=== PATIENT | male | born 1990 | race Two or more races ===

== ENCOUNTER 2020-01-05 13:13 | Emergency (ER) | payer SELFPAY ==
[2020-01-05 13:33] VITALS: BP 151/92
--- NOTE | 2020-01-05 13:59 | ER Document Report ---
ED Blood Pressure Problem - General Chief Complaint: Blood Pressure Problem Stated Complaint: BLOOD PRESSURE ISSUE Time Seen by Provider: 01/05/20 13:56 Primary Care Provider: [facility] [Provider Group] - Follow up as needed [facility] [Provider Group] - Follow up as needed Notes: Patient is a 29-year-old male presents emergency department with a chief complaint of elevated blood pressure. 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 Patient reports 5 years ago [address] did place him on blood pressure medication but since then he has stopped taking it. States he does not go to the doctor. States that he is not currently symptomatic and does not have chest pain, shortness of breath, dizziness, blurred vision or lightheadedness. Patient states that he just wants medication to help with his blood pressure. - Related Data Allergies/Adverse Reactions: No Known Allergies Allergy (Verified 01/05/20 13:45) Past Medical History - General Information source: Patient - Social History Smoking Status: Never Smoker Lives with: Family Family History: None - Past Medical History Cardiac Medical History: Reports: None Pulmonary Medical History: Reports: None EENT Medical History: Reports: None Neurological Medical History: Reports: None Endocrine Medical History: Reports: None Renal/ Medical History: Reports: None Malignancy Medical History: Reports None GI Medical History: Reports: None Musculoskeletal Medical History: Reports None Skin Medical History: Reports None Psychiatric Medical History: Reports: None Traumatic Medical History: Reports: None Infectious Medical History: Reports: None Review of Systems - Review of Systems Constitutional: No symptoms reported EENT: No symptoms reported Cardiovascular: No symptoms reported Respiratory: No symptoms reported Gastrointestinal: No symptoms reported Genitourinary: No symptoms reported Male Genitourinary: No symptoms reported Musculoskeletal: No symptoms reported Skin: No symptoms reported Hematologic/Lymphatic: No symptoms reported Neurological/Psychological: No symptoms reported Physical Exam - Vital signs Vitals: Temp Pulse Resp BP Pulse Ox 98.6 F 87 16 151/92 H 97 01/05/20 13:32 01/05/20 13:32 01/05/20 13:32 01/05/20 13:32 01/05/20 13:32 Interpretation: Hypertensive - Notes Notes: GENERAL: Well-appearing, well-nourished and in no acute distress. HEAD: Atraumatic, normocephalic. EYES: Pupils equal round and reactive to light, extraocular movements intact, sclera anicteric, conjunctiva are normal. ENT: Nares patent, oropharynx clear without exudates. Moist mucous membranes. NECK: Normal range of motion, supple without lymphadenopathy or JVD. LUNGS: Breath sounds clear to auscultation bilaterally and equal. No wheezes rales or rhonchi. HEART: Regular rate and rhythm without murmurs, rubs or gallops. ABDOMEN: Soft, obese, nontender, normoactive bowel sounds. No guarding, no rebound. No masses appreciated. BACK: No cervical, thoracic, lumbar midline tenderness. No saddle anesthesia, normal distal neurovascular exam. GENITOURINARY: Deferred. EXTREMITIES: Normal range of motion, no pitting or edema. No clubbing or cyanosis. NEUROLOGICAL: Cranial nerves II through XII grossly intact. Normal speech, normal gait. PSYCH: Normal mood, normal affect. SKIN: Warm, Dry, normal turgor, no rashes or lesions noted. Course - Re-evaluation Re-evalutation: 01/05/20 14:03 Did inform the patient that I would like to obtain basic labs to start due to th e elevated blood pressure as well as an EKG. Patient reports he does not have health insurance and is concerned about the corrales of the testing and just wants prescription medication for his blood pressure so he can pass his DOT physical. Patient is currently asymptomatic. Patient's blood pressure 151/92. I did give the patient multiple referrals to the [facility] as well as the [facility]. He is aware that they do help people who do not have health insurance. I did inform the patient that he needs to follow-up with a primary care physician as they need to recheck his blood pressure and potentially place him on blood pressure medications which do need to be monitored regularly. Patient is obese, we did discuss healthy diet and exercise as well. Patient politely declined having his blood work obtained at this time. Patient given strict return instructions if he develops any symptoms such as severe headache, blurred vision, chest pain lightheadedness or any new or worsening symptoms. - Vital Signs Vital signs: Temp Pulse Resp BP Pulse Ox 98.6 F 87 16 151/92 H 97 01/05/20 13:32 01/05/20 13:32 01/05/20 13:32 01/05/20 13:32 01/05/20 13:32 Discharge - Discharge Clinical Impression: Elevated blood pressure reading Condition: Stable Disposition: HOME, SELF-CARE Additional Instructions: *Today are seen in the emergency department for high blood pressure. Your blood pressure was in the 150s. You do need to follow-up with a primary care physician. We did offer to obtain basic lab work to check kidney function but you have politely declined this. I have given you multiple referrals to clinics in the area that do help people with out insurance. Please follow-up with them. HIGH BLOOD PRESSURE, NOT TREAT: When your blood pressure was taken today it was elevated. Today's reading was ____151/92 . We do not think you need to have your blood pressure treated today. Sometimes, stress or illness causes a temporary elevation of your blood pressure. We suggest that you get your blood pressure measured again during the next few days to see if this elevated blood pressure is more than a temporary abnormality. If your blood pressure is greater than 150/90 on each occasion, you must have treatment. Some simple things you can do to help are: If you have blood pressure medicine but aren't using it regularly, start taking it again. Get some aerobic exercise for at least 20 minutes on a daily basis. (See your doctor before beginning a new exercise program.) Eat a low-fat diet. Lose excess weight. Avoid salty foods and avoid adding salt to any of the foods you eat. Avoid diet pills, decongestants, "energizing" herbs, and other medicines that elevate blood pressure. If left untreated, hypertension greatly enhances your risk for developing heart disease and strokes. Please don't ignore this problem. HIGH BLOOD PRESSURE REQUIRING TREATMENT: Your blood pressure is high. This is called "hypertension." Today's reading was ___151/92 (normal is less than 140/90). Your history and exam suggest that this is not a temporary problem. You need treatment of your blood pressure. If left untreated, high blood pressure greatly increases your risk of heart attack and stroke. Please don't ignore this problem. If you have blood pressure medicine but aren't using it regularly, start taking it again. Some simple things you can do to help are: Get some aerobic exercise for at least 20 minutes on a daily basis. (See your doctor before beginning any new exercise program.) Eat a low-fat diet. Lose excess weight. Avoid salty foods and avoid adding salt to any of the foods you eat. Avoid diet pills, decongestants, "energizing" herbs, and other medicines that elevate blood pressure. There are many different medicines that treat blood pressure. If your medication causes unpleasant side effects, call your doctor. There are others you can try. Treating hypertension is a life-long investment in your health. FOLLOW-UP CARE: If you have been referred to a physician for follow-up care, call the physicians office for an appointment as you were instructed or within the next two days. If you experience worsening or a significant change in your symptoms, notify the physician immediately or return to the Emergency Department at any time for re-evaluation. Referrals: [facility] [Provider Group] - Follow up as needed [facility] [Provider Group] - Follow up as needed
== END 2020-01-05 14:02 | disposition home or self-care (01) ==
LOC: ER 13:13
DX: R03.0 Elevated blood-pressure reading, without diagnosis of hypertension (principal)
CPT/HCPCS: 99281